=== PATIENT | male | born 1950 | race Two or more races ===

== ENCOUNTER 2021-12-30 09:23 | Outpatient (REF) | payer MEDICAID, SELFPAY ==
--- NOTE | ~2021-12-30 | XR_ITS ---
EXAMINATION: XR CHEST CLINICAL INFORMATION: Worsening asthma. COMPARISON: None. TECHNIQUE: 2 views of the chest were obtained. FINDINGS: The cardiac and mediastinal contours are normal. The lungs are clear. There is no pleural effusion or pneumothorax. There is curvature of the midthoracic spine to the right. There are degenerative changes of the spine. There is a sclerotic density that projects over the posterior inferior T7 vertebral body on the lateral view. This is probably related to vertebral body bony osteophyte. XR/XR chest 2V IMPRESSION: No evidence for acute disease in the chest. Increased density in the posterior inferior T7 vertebral body probably related to vertebral body bony osteophyte.
== END 2021-12-30 09:24 | disposition home or self-care (01) ==
LOC: HO.XRAY 09:23
PROVIDERS: Visit Provider Emergency Medicine
DX: J45.30 Mild persistent asthma, uncomplicated (principal)
CPT/HCPCS: 71046

== ENCOUNTER → 2022-02-13 09:04 | Outpatient (BNVA) | payer MEDICARE, MEDICAID, SELFPAY | PROVIDERS: PCP Emergency Medicine; Visit Provider Internal Medicine Pulmonary Disease | DX: J44.9 Chronic obstructive pulmonary disease, unspecified (principal); R91.8 Other nonspecific abnormal finding of lung field; R06.09 Other forms of dyspnea | CPT/HCPCS: 99202 ==

== ENCOUNTER 2022-02-20 09:27 | Outpatient (REF) | payer MEDICARE, MEDICAID, SELFPAY ==
--- NOTE | ~2022-02-20 | CT_ITS ---
EXAMINATION: CT CHEST WITHOUT CONTRAST CLINICAL INFORMATION: Abnormal lung findings. COMPARISON: Chest x-ray 12/30/2021. TECHNIQUE: Multidetector volumetric CT imaging of the chest was done. Axial MIP volume rendering provided. Sagittal and coronal reformatted images were obtained. This CT examination was performed using dose optimization techniques as appropriate, variously including the following: *Automated exposure control *Adjustment of mA and/or kV according to patient size (this includes techniques or standardized protocols for targeted exams where dose is matched to indication/reason for exam; i.e. extremities or head) *Use of iterative reconstruction technique DLP: 124 mGy-cm FINDINGS: BURLAP BAG SEWER: Unremarkable. LUNGS: The lungs are well expanded without acute pneumonic process. There is a 2 mm calcified nodule left upper lobe axial image 153/7, 3 mm noncalcified nodule right upper lobe axial image 202/7, 2 mm small nodules in the right upper lobe anterior segment image 280/7, 2 mm nodule left major fissure axial image 302/7 likely a lymph node, 2 mm nodule in the anterior lingula image 221/7, 328/7, 3 mm nodule left lower lobe axial image 454/7 and atelectatic changes in the lingula and left lower lobe. MEDIASTINUM: The thyroid lobes are symmetric and normal. The central trachea and the bronchi are widely patent. Heart size and the great vessels are normal caliber. There is a 1.6 cm pretracheal node axial image 301/7. There is no pericardial effusion seen. CORONARY ARTERY CALCIFICATION: Trace coronary artery calcifications are present. PLEURA: There is no pleural effusion. No pleural mass or thickening. AXILLA: No abnormal lymph node seen in the axilla. The chest wall appears unremarkable. UPPER ABDOMEN: Small hypodense lesions in the liver but no liver enlargement or intrahepatic ductal dilatation. Visualized spleen, pancreas and bilateral adrenal glands unremarkable. OSSEOUS STRUCTURES: No aggressive lytic or sclerotic process seen. There is minimal endplate compressions of T4 and T6 vertebra. There is moderate ventral spondylosis mid and lower dorsal spine. CT/CT chest wo IV con IMPRESSION: No acute cardiopulmonary process seen. There are small pulmonary nodules with a majority of them noncalcified. There are atelectatic changes in the lingula and left lower lobe. Fleischner guidelines were followed.
== END 2022-02-20 09:28 | disposition home or self-care (01) ==
LOC: HO.CT 09:27
PROVIDERS: Visit Provider Internal Medicine Pulmonary Disease
DX: R91.8 Other nonspecific abnormal finding of lung field (principal)
CPT/HCPCS: 71250

== ENCOUNTER → 2022-02-24 10:24 | Outpatient (REF) | payer MEDICARE, MEDICAID, SELFPAY ==
--- NOTE | 2022-02-24 10:28 | CA_ITS ---
Transthoracic Echocardiogram Patient (Last, First, Middle): Ansley Mata, Gender: Male Date of : 1950 Age: 71 Procedure Date: 02/24/2022 Procedure Type: Transthoracic Echocardiogram Location: OP Height: 167.64 cm Weight: 70. kg BSA: 1.79 m2 Heart Rate: 71 bpm BP: 120 / 60 mmHg Recruiting And Selection Consultant: CLARISSE Referring MD: Albert Ortiz MD Symptoms: R06.09 - Other forms of dyspnea Study Quality: Adequate ECG Rhythm: Sinus Conclusions: - The left ventricular systolic function is normal. The visually estimated ejection fraction is between 65-70%. - Normal right ventricular cavity size and systolic function. - No obvious valvular pathology seen on this study. - There is no evidence of pulmonary hypertension. Findings Left Ventricle Normal left ventricular cavity size. The left ventricular systolic function is normal. The visually estimated ejection fraction is between 65-70%. There is no evidence of regional wall motion abnormalities. Diastolic function is normal for age. There is mild septal asymmetric hypertrophy. LV peak GLS -17.5%. Right Ventricle Normal right ventricular cavity size and systolic function. Atria Both atria are normal in size. Aortic Valve There is a normal trileaflet aortic valve. There is no aortic valve stenosis. There is no aortic valve regurgitation. Mitral Valve The mitral valve appears normal. There is no mitral valve regurgitation. There is no mitral valve stenosis. Pulmonic Valve The pulmonic valve is likely normal. Tricuspid Valve Normal tricuspid valve structure. There is mild tricuspid valve regurgitation. There is no evidence of pulmonary hypertension. Great Vessels The asc aorta is normal in size. Venous The inferior vena cava is normal in size and collapses greater than 50% with inspiration. Pericardium/Pleural There is no evidence of pericardial effusion. Prior Study Comparison No prior study available for comparison. Recommendations, Care & Conclusions No obvious valvular pathology seen on this study. Measurements 2D Linear Measurements IVSd: 1.17 0.6-0.9/0.6-1.0 cm LVIDd: 4.80 3.9-5.3/4.2-5.9 cm LVIDd Index: 2.68 2.4-3.2/2.2-3.1 cm/m2 LVIDs: 2.89 2.0-3.6 cm LVPWd: 0.97 0.7-1.1 cm LA Diam: 3.60 2.7-3.8/3.0-4.0 cm LAIDs Index: 2.01 1.5-2.3 cm/m2 LV Mass: 233.21 67-162/88-224 g LV Mass Index: 130.29 43-95/49-115 g/m2 LVOT Diam: 1.90 3.0+(-)1.3 cm 2D Systolic Function EF 4C: 58.90 >55% EF 2C: 70.00 >55% EF BiP: 64.50 >55% Mitral Valve MV Pk E: 0.83 MV PK A: 1.11 MV Decel Time: 247.00 E/A: 0.70 E'Lateral: 8.27 E'Medial: 9.25 E/E' Med: 8.90 E/E' Lat: 10.00 PHT: 72.00 MVA PHT: 3.06 Decel [place]: 3.34 Aortic Valve AoV Pk [place]: 1.46 AoV Mn [place]: 0.96 AoV VTI: 0.31 AoV Pk Grad: 9.00 Aov Mn Grad: 4.00 LIDIA Cont.VTI: 2.03 LVOT LVOT Pk [place]: 1.01 LVOT Mn [place]: 0.73 LVOT VTI: 0.22 LVOT Pk Grad: 4.00 LVOT Mn Grad: 2.00 LVOT Diam: 1.90 LVOT Area: 2.84 Diastolic Function MV Pk E: 0.83 MV Pk A: 1.11 E/A: 0.70 E'Medial: 9.25 E/E' Med: 8.90 E' Laterial: 8.27 E/E' Lat: 10.00 Right Ventricle TAPSE (mm): 20.30 TVS' [place]: 12.50 Tricuspid Valve TR Pk [place]: 2.44 TR Pk Grad: 24.00 RA Press: 3.00 RVSP: 27.00 Great Vessels Aorta Sinus of Valsalva: 3.30 2.0-3.5 cm Ao Asc: 3.40 2.1-3.4 cm Pulmonary Valve PV Pk [place]: 1.03 Peak PV Grad: 4.00 Updated in Other Vendor System with Status of Final Armand Ray MD electronically signed on 02/25/2022 10:50:46 AM with status of Final
== END ==
LOC: HO.CARD 10:24
PROVIDERS: Visit Provider Internal Medicine Pulmonary Disease
DX: R06.09 Other forms of dyspnea (principal)
CPT/HCPCS: 93306

== ENCOUNTER 2022-03-21 09:45 | Outpatient (REF) | payer MEDICARE, MEDICAID, SELFPAY ==
--- NOTE | 2022-03-21 11:59 | PFT_ITS ---
INDICATION: COPD. SPIROMETRY: FEV1 to FVC 65% with an FEV1 of 2.29 L, which is 83% predicted. FVC of 3.53 L, which is 97% predicted. No significant response to bronchodilators noted. Maximum voluntary ventilation 81% predicted. LUNG VOLUMES: Total lung capacity 89% predicted. DIFFUSION CAPACITY: DLCO 70% predicted. COMPARISONS: None. INTERPRETATION: There is an obstructive ventilatory defect consistent with mild COPD. No significant response to bronchodilators noted. Normal maximum voluntary ventilation. The patient has normal lung volumes and mild diffusion impairment. Clinical correlation warranted. Mika Alberts MD MR/MODL / [id number]
== END 2022-03-21 09:46 | disposition home or self-care (01) ==
LOC: HO.RESP 09:45
PROVIDERS: Visit Provider Internal Medicine Pulmonary Disease
DX: J44.9 Chronic obstructive pulmonary disease, unspecified (principal)
CPT/HCPCS: 94060; 94727; 94729